=== PATIENT | female | born 1950 | race African-American/Black ===

== ENCOUNTER → 2016-04-19 | Outpatient (CLI) | payer MEDICARE, OTHER ==
[2014-04-27 15:01] VITALS: BP 123/58
[~2016-04-19] MED LIST: Blood Pressure Med PO; DILT180C2 PO; Hydrochlorothiazide PO; NAPR500T PO; POTA10TA10 PO
--- NOTE | 2016-04-19 15:49 | RAD ---
DATE: 04/19/2016 EXAM: DIGITAL SCREEN BILAT W/CAD HISTORY: Routine screening COMPARISON: 12/13/2014 This study was interpreted with the benefit of Computerized Aided Detection (CAD). FINDINGS: There are scattered fibroglandular densities in the breasts. No new or enlarging breast densities are seen. Benign type calcifications are present. No suspicious microcalcifications have developed. IMPRESSION: Stable mammograms without evidence of malignancy. BI-RADS CATEGORY: 2 BENIGN FINDING(S) RECOMMENDED FOLLOW-UP: 12M 12 MONTH FOLLOW-UP PQRS compliance statement: Patient information was entered into a reminder system with a target due date for the next mammogram. Mammography is a sensitive method for finding small breast cancers, but it does not detect them all and is not a substitute for careful clinical examination. A negative mammogram does not negate a clinically suspicious finding and should not result in delay in biopsying a clinically suspicious abnormality. "Our facility is accredited by the [employer] Mammography Program."
== END | disposition home or self-care (01) ==
LOC: MAMMO 12:50
PROVIDERS: ATTEND Family Medicine
DX: Z12.31 Encounter for screening mammogram for malignant neoplasm of breast (principal)
CPT/HCPCS: G0202; 77067

== ENCOUNTER → 2016-06-23 | Outpatient (CLI) | payer MEDICARE ==
[2014-04-27 15:01] VITALS: BP 123/58
[~2016-06-23] MED LIST changes: +CONTRAST GIVEN MC PRN; +IOHEXOL 300 MG/ML 100ML VIAL. IV ONE; -POTA10TA10 PO; +POTA10TA12 PO
--- NOTE | 2016-06-23 14:18 | KCIC ---
PROCEDURE CTA of the chest with contrast (pulmonary embolism protocol) 06/23/2016 HISTORY Pleuritic chest pain for 1 week with shortness of breath. TECHNIQUE After the intravenous administration 95 cc of Omnipaque 300, contiguous, 0.6 millimeter axial sections were obtained through the chest. 2 millimeter reconstructed axial and 3D MIP sagittal and coronal reconstructed images were obtained. One or more of the following individualized dose reduction techniques were utilized for this study: 1. Automated exposure control. 2. Adjustment of the mA and/or kV according to patient size. 3. Use of iterative reconstruction technique. FINDINGS Comparison study is dated 04/26/2014. No filling defect is seen within the major branches of either pulmonary artery. There is no CT evidence of pulmonary embolism. The thoracic aorta is tortuous but tapers normally. Mild to moderate atheromatous/atherosclerotic plaque formation is seen involving the thoracic aorta and its branches. The heart is mildly enlarged. Calcified hilar and mediastinal lymph nodes are seen which measure 5 millimeters to 2 centimeters in size. Prominent likely reactive lymph nodes are seen bilaterally. These measure 1 centimeters to 2 centimeters in size Minimal dependent subsegmental atelectasis is seen involving both lungs. Small calcified granulomas are seen scattered throughout both lungs. No area of consolidation is seen. No pneumothorax or pleural effusion is noted. Images through the abdomen demonstrate decreased attenuation of the liver parenchyma consistent with fatty infiltration. Degenerative changes are seen involving the thoracic spine. Very mild S-shaped curvature of the thoracolumbar spine is seen. IMPRESSION There is no CT evidence of pulmonary embolism. Electronically signed by: Bipin Willson MD (June 23, 2016 14:16:47)
== END | disposition home or self-care (01) ==
LOC: KCIC CT 09:37
PROVIDERS: ATTEND Family Medicine
DX: R07.81 Pleurodynia (principal)
CPT/HCPCS: 71275; 82565; Q9967

== ENCOUNTER → 2017-06-20 | Outpatient (CLI) | payer MEDICARE | END | disposition home or self-care (01) | LOC: MAMMO 12:19 | DX: Z12.31 Encounter for screening mammogram for malignant neoplasm of breast (principal) | CPT/HCPCS: 77063; 77067 ==

== ENCOUNTER 2017-12-12 16:18 | Emergency (ER) | payer MEDICARE ==
[~2017-12-12] VITALS: Ht 165.1 cm; Wt 88.0 kg
[~2017-12-12 16:18] MED LIST changes: -CONTRAST GIVEN MC PRN; -IOHEXOL 300 MG/ML 100ML VIAL. IV ONE; +NAPR-683 PO; -NAPR500T PO
[2017-12-12] MEDS ORDERED: CONTRAST GIVEN. MC PRN (17:45)
[2017-12-12] MEDS ORDERED: IOHEXOL 300 MG/ML 100ML VIAL. IV ONE (17:45)
[2017-12-12 18:25] LABS: BILIRUBIN,URINE NEGATIVE (NEG); CLARITY,URINE CLEAR; COLOR,URINE YELLOW; NITRITE,URINE NEGATIVE (NEG); PH,URINE 5.5; PROTEIN,URINE NEGATIVE (NEG-TRACE); UROBILINOGEN,URINE 0.2 mg/dL (0.2 mg/dL)
[2017-12-12 18:32] LABS: BASO % 1 % (0-3); EOS # 0.1 x10^3/uL (0.0-0.7); EOS % 2 % (0-3); HEMATOCRIT 36.4 % (36.0-47.0); HEMOGLOBIN 12.3 g/dL (12.0-15.5); LYMPH # 2.3 x10^3/uL (1.0-4.8); LYMPH % 52 % (24-48); MEAN CORPUSCULAR HEMOGLOBIN 32 pg (25-35); MEAN CORPUSCULAR HGB CONC 34 g/dL (31-37); MEAN CORPUSCULAR VOLUME 94 fL (79-100); MONO # 0.4 x10^3/uL (0.0-1.1); MONO % 9 % (0-9); NEUT # 1.7 x10^3uL (1.8-7.7); NEUT % 37 % (31-73); PLATELET COUNT 211 x10^3/uL (140-400); RED BLOOD COUNT 3.88 x10^6/uL (3.50-5.40); RED CELL DISTRIBUTION WIDTH 14.2 % (11.5-14.5); WHITE BLOOD COUNT 4.5 x10^3/uL (4.0-11.0)
[2017-12-12 18:42] LABS: BACTERIA,URINE FEW /HPF (0-FEW); RBC,URINE 0 /HPF (0-2); SQUAMOUS EPITHELIAL CELL,UR MANY /LPF
[2017-12-12 18:43] LABS: CREATININE 1.3 mg/dL (0.6-1.0); GFR 49.3; POTASSIUM 3.4 mmol/L (3.5-5.1)
[2017-12-12] MEDS ORDERED: ONDANSETRON PF 4 MG/2 ML VIAL. IV ONE (19:00)
[2017-12-12] MEDS ORDERED: fentaNYL PF VIAL 100 MCG/2 ML VIAL IV ONE (19:00)
[2017-12-12 19:01] LABS: ALBUMIN 3.5 g/dL (3.4-5.0); ALBUMIN/GLOBULIN RATIO 0.7 (1.0-1.7); TOTAL BILIRUBIN 0.2 mg/dL (0.2-1.0); TOTAL PROTEIN 8.6 g/dL (6.4-8.2)
--- NOTE | 2017-12-12 19:31 | RAD ---
PQRS Compliance statement: One or more of the following individualized dose reduction techniques were utilized for this examination: 1. Automated exposure control. 2. Adjustment of the mA and/or kV according to patient size. 3. Use of iterative reconstruction technique. Indication:right lower quadrant pain
Omni 300 60ml, reduced dose
prior sent TECHNIQUE: CT abdomen and pelvis with IV contrast with multiplanar reformats. COMPARISON: None FINDINGS: Heart is normal in size. No pericardial or pleural effusion. Mild bibasilar dependent atelectasis. Scattered calcified granulomas in the liver and spleen. Too small to characterize low attenuating lesion in segment 8 of the liver measuring 8 mm (series 2 image 17). No radiopaque gallstones. No pericholecystic fluid or gallbladder wall thickening. Pancreas within normal limits without peripancreatic inflammatory changes or focal pancreatic lesion. Adrenal glands show no focal mass. 3 mm nonobstructing stone in the right kidney. No hydronephrosis or suspicious renal lesion. No enlarged retroperitoneal or pelvic adenopathy. No free pelvic fluid or ascites. Appendix is not visualized. No right lower quadrant inflammatory changes. Circumferential rectal wall thickening is seen measuring 1.2 cm. Status post hysterectomy. No pneumoperitoneum. Urinary bladder is within normal limits. Status post hysterectomy. No suspicious bony lesion. Multilevel degenerative disc disease is seen in the spine. IMPRESSION: 1. Appendix is not visualized. However no right lower quadrant inflammatory changes. No bowel obstruction. 2. Circumferential wall thickening of the rectum may be secondary to suboptimal distention. However rectal malignancy is not ruled out. Clinically correlate with colonoscopy. 3. Too small to characterize segment 8 lesion, nonspecific and may represent a small hemangioma. Nonemergent MRI of the abdomen with IV contrast is recommended for definite confirmation. 3. Nonobstructing right renal stone. Electronically signed by: Artemio Lobato DO (12/12/2017 7:28 PM) [facility]
[2017-12-12 20:38] VITALS: BP 152/76
--- NOTE | 2017-12-12 21:22 | PHYS DOC ---
Past Medical History Past Medical History: No Pertinent History Past Surgical History: Other Alcohol Use: None Drug Use: None Adult General Chief Complaint Chief Complaint: ABDOMINAL PAIN HPI HPI Patient is a 67 year old F P/W ABDO PAIN RLQ. STARTED ON TUESDAY SHE DOES NOT RECALL A PARTICULAR INJURY NO URINARY SYMPTOMS NO FEVER PRIMARY PAUL ASKED ER EVAL FOR R/O APPENDICITIS. PT STATES THE PAIN IS SHARP WORSE WITH MOVING LEG, SHE POINTS TO HER INGUINAL LIGAMENT AREA. NONRADIATING. WORSENING WITH TIME. Review of Systems Review of Systems Constitutional: Denies fever or chills [] Eyes: Denies change in visual acuity, redness, or eye pain [] HENT: Denies nasal congestion or sore throat [] GI: Denies nausea, vomiting, bloody stools or diarrhea [] : Denies dysuria or hematuria [] Musculoskeletal: Denies back pain or joint pain [] Neurologic: Denies headache, focal weakness or sensory changes [] Endocrine: Denies polyuria or polydipsia [] All other systems were reviewed and found to be within normal limits, except as documented in this note. Current Medications Current Medications Current Medications Medications (Trade) Dose Ordered Sig/Laisha Start Time Stop Time Status Last Admin Dose Admin Fentanyl Citrate (Fentanyl 2ml Vial) 50 mcg 1X ONCE 12/12/17 19:00 12/12/17 19:01 DC 12/12/17 18:42 50 MCG Info (CONTRAST GIVEN -- Rx MONITORING) 1 each PRN DAILY PRN 12/12/17 17:45 12/12/17 20:51 DC Iohexol (Omnipaque 300 Mg/ml) 75 ml 1X ONCE 12/12/17 17:45 12/12/17 17:46 DC 12/12/17 17:45 60 ML Ondansetron HCl (Zofran) 4 mg 1X ONCE 12/12/17 19:00 12/12/17 19:01 DC 12/12/17 18:39 4 MG Allergies Allergies Allergies Coded Allergies Type Severity Reaction Last Updated Verified No Known Drug Allergies 04/25/14 No Physical Exam Physical Exam Constitutional: Well developed, well nourished, no acute distress, non-toxic appearance. [] HENT: Normocephalic, atraumatic, bilateral external ears normal, oropharynx moist, no oral exudates, nose normal. [] Eyes: PERRLA, EOMI, conjunctiva normal, no discharge. [] Neck: Normal range of motion, no tenderness, supple, no stridor. [] RES: NORMAL EFFORT NO INCREASED WORK OF BRAETHING Abdomen: Bowel sounds normal, soft, THERE IS tenderness JUST ABOVE THE INGUINAL LIGAMENT THERE IS NO LYMPHADENOPATHY OR HERNIA PAIN IS REPRODUCED WHEN SHE MOVES HER LEG. NO TTP AT [place] POINT. no masses , no pulsatile masses. [] Skin: Warm, dry, no erythema, no rash. [] Extremities: No tenderness, no cyanosis, no clubbing, ROM intact, no edema. [] Neurologic: Alert and oriented X 3, normal motor function, normal sensory function, no focal deficits noted. [] Psychologic: Affect normal, judgement normal, mood normal. [] Current Patient Data Vital Signs Vital Signs Date Time Temp Pulse Resp B/P (MAP) Pulse Ox O2 Delivery O2 Flow Rate FiO2 12/12/17 20:38 98.2 66 16 152/76 (101) 98 Room Air 98.2 Lab Values Laboratory Tests Test 12/12/17 18:10 12/12/17 18:23 Urine Collection Type Unknown Urine Color Yellow Urine Clarity Clear Urine pH 5.5 Urine Specific [place] 1.015 Urine Protein Negative mg/dL (NEG-TRACE) Urine Glucose (UA) Negative mg/dL (NEG) Urine Ketones (Stick) Negative mg/dL (NEG) Urine Blood Negative (NEG) Urine Nitrite Negative (NEG) Urine Bilirubin Negative (NEG) Urine Urobilinogen Dipstick 0.2 mg/dL (0.2 mg/dL) Urine Leukocyte Esterase Small (NEG) Urine RBC 0 /HPF (0-2) Urine WBC 1-4 /HPF (0-4) Urine Squamous Epithelial Cells Many /LPF Urine Bacteria Few /HPF (0-FEW) Urine Mucus Mod /LPF White Blood Count 4.5 x10^3/uL (4.0-11.0) Red Blood Count 3.88 x10^6/uL (3.50-5.40) Hemoglobin 12.3 g/dL (12.0-15.5) Hematocrit 36.4 % (36.0-47.0) Mean Corpuscular Volume 94 fL (79-100) Mean Corpuscular Hemoglobin 32 pg (25-35) Mean Corpuscular Hemoglobin Concent 34 g/dL (31-37) Red Cell Distribution Width 14.2 % (11.5-14.5) Platelet Count 211 x10^3/uL (140-400) Neutrophils (%) (Auto) 37 % (31-73) Lymphocytes (%) (Auto) 52 % (24-48) H Monocytes (%) (Auto) 9 % (0-9) Eosinophils (%) (Auto) 2 % (0-3) Basophils (%) (Auto) 1 % (0-3) Neutrophils # (Auto) 1.7 x10^3uL (1.8-7.7) L Lymphocytes # (Auto) 2.3 x10^3/uL (1.0-4.8) Monocytes # (Auto) 0.4 x10^3/uL (0.0-1.1) Eosinophils # (Auto) 0.1 x10^3/uL (0.0-0.7) Basophils # (Auto) 0.0 x10^3/uL (0.0-0.2) Sodium Level 142 mmol/L (136-145) Potassium Level 3.4 mmol/L (3.5-5.1) L Chloride Level 105 mmol/L (98-107) Carbon Dioxide Level 25 mmol/L (21-32) Anion Gap 12 (6-14) Blood Urea Nitrogen 15 mg/dL (7-20) Creatinine 1.3 mg/dL (0.6-1.0) H Estimated GFR (Cockcroft-Gault) 49.3 BUN/Creatinine Ratio 12 (6-20) Glucose Level 76 mg/dL (70-99) Calcium Level 9.0 mg/dL (8.5-10.1) Total Bilirubin 0.2 mg/dL (0.2-1.0) Aspartate Amino Transferase (AST) 19 U/L (15-37) Alanine Aminotransferase (ALT) 25 U/L (14-59) Alkaline Phosphatase 107 U/L (46-116) Total Protein 8.6 g/dL (6.4-8.2) H Albumin 3.5 g/dL (3.4-5.0) Albumin/Globulin Ratio 0.7 (1.0-1.7) L Laboratory Tests 12/12/17 18:23 Laboratory Tests 12/12/17 18:23 EKG EKG [] Radiology/Procedures Radiology/Procedures [] Impressions: ine. IMPRESSION: 1. Appendix is not visualized. However no right lower quadrant inflammatory changes. No bowel obstruction. 2. Circumferential wall thickening of the rectum may be secondary to suboptimal distention. However rectal malignancy is not ruled out. Clinically correlate with colonoscopy. 3. Too small to characterize segment 8 lesion, nonspecific and may represent a small hemangioma. Nonemergent MRI of the abdomen with IV contrast is recommended for definite confirmation. 3. Nonobstructing right renal stone. Electronically signed by: Artemio Lobato DO (12/12/2017 7:28 PM) [facility] Course & Med Decision Making Course & Med Decision Making Pertinent Labs and Imaging studies reviewed. (See chart for details) NOTED CT READ OF THE RECTUM, PT STATES HAD CLEAN COLO TWO MONTHS AGO. PT HAS SOMEWHAT REPRODUCIBLE MSK PAIN AT OR NEAR THE INGUINAL LIGAMENT. CT SCAN DID NOT SHOW ANY SIGNS OF APPENDICITIS AFTER TWO DAYS OF SYPMTOMS. INSTRCUTED TO COME BACK FOR FEVER, WORSENING OR DIFFUSE PAIN OR ANY OTHER SYPMTOMS OR CONCERNS. OTHERWISE F/U WITH DR MILLER REGARDING THE BLOOD PRESSURE WELL SHE IS IN AGREEMENT Dragon Disclaimer Dragon Disclaimer This electronic medical record was generated, in whole or in part, using a voice recognition dictation system. Departure Departure Impression: Primary Impression: Elevated blood pressure reading Additional Impression: Abdominal pain Disposition: 01 HOME, SELF-CARE Condition: STABLE Patient Instructions: Abdominal Pain (Nonspecific) Additional Instructions: get your blood pressure checked in two weeks. Problem Qualifiers NILAM PORTILLO MD Dec 12, 2017 21:21
== END 2017-12-12 20:42 | disposition home or self-care (01) ==
LOC: ER 16:18
DX: R10.31 Right lower quadrant pain (principal); R03.0 Elevated blood-pressure reading, without diagnosis of hypertension
CPT/HCPCS: 36415; 74177; 80053; 81001; 85025; 87086; 96374; 96375; 99285; J2405; J3010; Q9967

== ENCOUNTER → 2018-06-22 | Outpatient (CLI) | payer MEDICARE ==
--- NOTE | 2018-06-22 09:39 | RAD ---
DATE: 06/22/2018 EXAM: MAMMO DANDRE SCREENING BILATERAL HISTORY: Routine screening COMPARISON: 06/20/2017 This study was interpreted with the benefit of Computerized Aided Detection (CAD). Breast Density: SCATTERED The breast parenchyma shows scattered fibroglandular densities. Breast parenchyma level B. FINDINGS: 2-D and 3-D tomosynthesis imaging was performed in CC and MLO projections. No new or enlarging breast densities are seen. Benign type calcifications are present. No suspicious microcalcifications have developed. IMPRESSION: There is no mammographic evidence of malignancy in either breast. BI-RADS CATEGORY: 2 BENIGN FINDING(S) RECOMMENDED FOLLOW-UP: 12M 12 MONTH FOLLOW-UP PQRS compliance statement: Patient information was entered into a reminder system with a target due date for the next mammogram. Mammography is a sensitive method for finding small breast cancers, but it does not detect them all and is not a substitute for careful clinical examination. A negative mammogram does not negate a clinically suspicious finding and should not result in delay in biopsying a clinically suspicious abnormality. "Our facility is accredited by the [employer] Mammography Program."
== END | disposition home or self-care (01) ==
LOC: MAMMO 08:20
PROVIDERS: ATTEND Family Medicine
DX: Z12.31 Encounter for screening mammogram for malignant neoplasm of breast (principal); N64.89 Other specified disorders of breast
CPT/HCPCS: 77063; 77067

== ENCOUNTER → 2018-10-11 | Outpatient (CLI) | payer MEDICARE ==
--- NOTE | 2018-10-11 17:13 | RAD ---
Examination: Left Lower Extremity Venous Doppler Ultrasound History: Left ankle edema Comparison: None Procedure: Weston scale, color flow 2D and spectal waveform analysis images are obtained with and without compression in the area of the common femoral vein, superficial femoral vein - femoral vein junction, main femoral vein (superficial femoral vein) and popliteal vein. Veins of the proximal calf are also imaged. Findings: There is normal duplex flow, color flow and compressibility of all visualized vein segments. No evidence of deep venous thrombus is present. Mild soft tissue edema identified in the left ankle and foot region. Impression: No evidence of DVT in the left lower extremity venous system. Electronically signed by: Jaquan Villarreal MD (10/11/2018 5:10 PM) [facility]
== END | disposition home or self-care (01) ==
LOC: US 13:51
PROVIDERS: ATTEND Family Medicine
DX: R60.0 Localized edema (principal)
CPT/HCPCS: 93971

== ENCOUNTER → 2018-12-12 | Outpatient (CLI) | payer MEDICARE ==
--- NOTE | 2018-12-12 14:25 | KCIC ---
EXAM: LEFT FOOT 3 VIEWS. HISTORY: Left foot pain, remote injury COMPARISON: None. FINDINGS: Three views of the left foot are obtained. No fractures are identified. There is mild pes planus. Small osteophytes indicate mild metatarsophalangeal osteoarthritis. There is mild hallux valgus. There is a moderate plantar calcaneal spur. Atherosclerotic calcifications are noted. Soft tissue swelling is noted along the dorsum of the foot. IMPRESSION: 1. 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 2. Mild pes planus. 3. Soft tissue swelling dorsally. Electronically signed by: Mariola Perez MD (12/12/2018 2:22 PM) [facility]
== END | disposition home or self-care (01) ==
LOC: KCIC 09:27
PROVIDERS: ATTEND Family Medicine
DX: M25.775 Osteophyte, left foot (principal); M21.42 Flat foot [pes planus] (acquired), left foot; M19.072 Primary osteoarthritis, left ankle and foot; M77.32 Calcaneal spur, left foot; I70.0 Atherosclerosis of aorta; M20.12 Hallux valgus (acquired), left foot
CPT/HCPCS: 73630

== ENCOUNTER → 2020-04-14 | Outpatient (CLI) | payer MEDICARE ==
[~2020-04-14] MED LIST changes: -POTA10TA12 PO; +POTASSIUM CHLO10 ME1 PO
--- NOTE | 2020-04-15 15:47 | RAD ---
EXAM: Bilateral digital screening mammogram with tomosynthesis. HISTORY: 70-year-old female presents for screening mammography. TECHNIQUE: Full-field digital craniocaudal and mediolateral oblique 2D and 3D tomosynthesis images of both breasts are obtained for evaluation. Computer aided detection was not applied. COMPARISON: 06/22/2018 BREAST PARENCHYMAL DENSITY: Level B - Scattered fibroglandular densities. FINDINGS: There is no new suspicious mass, microcalcification or region of architectural distortion. IMPRESSION: BI-RADS Category 2: Benign finding(s). RECOMMENDATION: Annual mammography is recommended. If your mammogram demonstrates that you have dense breast tissue, which could hide abnormalities, and if you have other risk factors for breast cancer that have been identified, you might benefit from s upplemental screening tests that may be suggested by your ordering physician. Dense breast tissue, i n and of itself, is a relatively common condition. This information is not provided to cause undue c oncern, but rather to raise your awareness and to promote discussion with your physician regarding th e presence of other risk factors, in addition to dense breast tissue. A report of your mammography re sults will be sent to you and your physician. You should contact your physician if you have any ques tions or concerns regarding this report. Mammography is a sensitive method for finding small breast cancers, but it does not detect them all a nd is not a substitute for careful clinical examination. A negative mammogram does not negate a clin ically suspicious finding and should not result in delay in biopsying a clinically suspicious abnorma lity. PQRS compliance statement - Patient information was entered into a reminder system with a target due date for the next mammogram. "Our facility is accredited by the [employer] Mammography Program." Electronically signed by: Sita Gupta MD (04/15/2020 3:45 PM) [id number]
== END ==
LOC: MAMMO 13:09
PROVIDERS: ATTEND Family Medicine
DX: Z12.31 Encounter for screening mammogram for malignant neoplasm of breast (principal)
CPT/HCPCS: 77063; 77067

== ENCOUNTER → 2020-08-05 | Outpatient (CLI) | payer MEDICARE ==
--- NOTE | 2020-08-05 08:35 | KCIC ---
EXAM: RENAL DOPPLER ULTRASOUND. HISTORY: Hypertension. COMPARISON: None. FINDINGS: Grayscale and Doppler analysis of the renal vasculature was performed bilaterally. Grayscal e analysis of the kidneys and bladder were also performed. The peak systolic velocities within the proximal, mid and distal right renal artery are 100 cm/s, 108 cm/s and 80 cm/s, respectively. Resistive indices measure 0.72-0.77. The right renal vein is patent. The corresponding measurements on the left are 77 cm/s, 63 cm/s and 69 cm/s, respectively. Resistive indices measure 0.75-0.77. The left renal vein is patent. The systolic velocity within the abdominal aorta at the level of the renal arteries is 90 cm/s. The i nferior vena cava is grossly patent and normal in caliber. The right kidney measures 10.6 cm. Cortical echogenicity is mildly increased. Cortical thickness is p reserved. There is no hydronephrosis. The left kidney measures 9.6 cm. Cortical echogenicity is mildly increased. Cortical thickness is pre served. There is no hydronephrosis. IMPRESSION: 1. No evidence of hemodynamically significant stenosis. 2. Mildly increased cortical echogenicity is consistent with intrinsic renal disease. Electronically signed by: Mariola Perez MD (08/05/2020 8:33 AM) [id number]
== END ==
LOC: KCIC US 07:54
PROVIDERS: ATTEND Family Medicine
DX: I10 Essential (primary) hypertension (principal)
CPT/HCPCS: 93975

== ENCOUNTER → 2020-08-25 | Outpatient (CLI) | payer MEDICARE ==
--- NOTE | 2020-08-25 17:23 | CARD ---
MR#: [id number] Date of Study: 08/25/2020 Ordering Physician: TEQUILA NGO, Referring Physician: TEQUILA NGO, Tech: Odalis Kinjal, [facility] APPROVED REPORT EXAM: Two-dimensional and M-mode echocardiogram with Doppler and color Doppler. Other Information Quality : AverageHR: 59bpm INDICATION Hypertension/HCVD 2D DIMENSIONS RVDd4.0 (2.9-3.5cm)Left Atrium(2D)4.0 (1.6-4.0cm) IVSd1.2 (0.7-1.1cm)Aortic Root(2D)3.1 (2.0-3.7cm) LVDd5.0 (3.9-5.9cm)LVOT Diameter2.1 (1.8-2.4cm) PWd1.0 (0.7-1.1cm)LVDs2.6 (2.5-4.0cm) FS (%) 47.1 %SV90.5 ml Aortic Valve AoV Peak Alvaro.128.6cm/sAoV VTI26.6cm AO Peak GR.6.6mmHgLVOT Peak Alvaro.133.2cm/s LVOT VTI 21.12cmAO Mean GR.3mmHg MARY (VMAX)2.51da6GIC (VTI)2.79cm2 Mitral Valve MV E Alescpht06.8cm/sMV DECEL [id number] MV A Ygqmijwq34.8cm/sMV WTN12xu E/A Ratio0.6MVA (PHT)2.84cm2 TDI E/Lateral E'6.2E/Medial E'9.7 Pulmonary Valve PV Peak Xnodkhyz62.9cm/sPV Peak Grad.4mmHg Tricuspid Valve TR P. Iwuluitu250ar/sRAP [id number] TR Peak Gr.28crUgKCTD71vzSx Pulmonary Vein S1 Pnrkzwth10.6cm/sD2 Heiujbaj04.0cm/s PVa [id number] LEFT VENTRICLE The left ventricle is normal size. There is mild concentric left ventricular hypertrophy. The left ve ntricular systolic function is normal and the ejection fraction is within normal range. The Ejection Fraction is 50-55%. There is normal LV segmental wall motion. Transmitral Doppler flow pattern is Gra de I-abnormal relaxation pattern. RIGHT VENTRICLE The right ventricle is normal size. There is normal right ventricular wall thickness. The right ventr icular systolic function is normal. ATRIA The left atrium size is normal. The right atrium size is normal. The interatrial septum is intact wit h no evidence for an atrial septal defect or patent foramen ovale as noted on 2-D or Doppler imaging. AORTIC VALVE The aortic valve is calcified but opens well. Doppler and Color Flow revealed trace aortic regurgitat ion. There is no significant aortic valvular stenosis. Calculated aortic valve maximum pressure gradi ent of 5 mmHg and mean pressure gradient of 2.24 mmHg. MITRAL VALVE The mitral valve is normal in structure and function. There is no evidence of mitral valve prolapse. There is no mitral valve stenosis. Doppler and Color Flow revealed no mitral valve regurgitation note d. TRICUSPID VALVE The tricuspid valve is normal in structure and function. Doppler and Color Flow revealed trace tricus pid regurgitation with an estimated PAP of 36 mmHg. There is no tricuspid valve stenosis. PULMONIC VALVE The pulmonic valve is not well visualized. Doppler and Color Flow revealed trace pulmonic valvular re gurgitation. GREAT VESSELS The aortic root is normal in size. The ascending aorta is normal in size. The IVC is normal in size a nd collapses >50% with inspiration. PERICARDIAL EFFUSION There is no evidence of significant pericardial effusion. Critical Notification Critical Value: No <Conclusion> The left ventricle is normal size. The left ventricular systolic function is normal and the ejection fraction is within normal range. The Ejection Fraction is 50-55%. There is mild concentric left ventricular hypertrophy. Doppler and Color Flow revealed trace aortic regurgitation. There is no significant aortic valvular stenosis. Calculated aortic valve maximum pressure gradient of 5 mmHg and mean pressure gradient of 2.24 mmHg. Doppler and Color Flow revealed no mitral valve regurgitation noted. Doppler and Color Flow revealed trace tricuspid regurgitation with an estimated PAP of 36 mmHg. Signed by : Julian Hardwick MD Electronically Approved : 08/25/2020 17:22:37
== END ==
LOC: ECHO 12:26
PROVIDERS: ATTEND Internal Medicine Cardiovascular Disease
DX: I35.8 Other nonrheumatic aortic valve disorders (principal); I11.9 Hypertensive heart disease without heart failure
CPT/HCPCS: 93306

== ENCOUNTER → 2020-11-07 | Outpatient (CLI) | payer MEDICARE ==
--- NOTE | 2020-11-07 15:32 | KCIC ---
MRI BRAIN WO Date: 11/07/2020 2:40 PM Indication: Migraine. Pt hypertensive, BP has been elevated. Pt. c/o headache post covid vaccine. Comparison: None. Technique: Multiplanar multisequence MRI of the brain was performed without intravenous contrast usin g the standard protocol. Findings: No acute infarct. No acute or chronic hemorrhage. The ventricles are normal in size and configuration without hydrocephalus. Mild scattered FLAIR hyperintensities in the subcortical and periventricular deep white matter, a nonspecific finding, most commonly seen with chronic small vessel ischemic disea se. Right cerebellar chronic lacunar infarcts. The scalp and calvarium are normal. Empty sella. No Chiari malformation. Mild incompletely characteri zed degenerative spondylosis of the visualized upper cervical spine. The visualized orbits and globes are normal. The visualized paranasal sinuses are clear. The mastoid air cells are clear. Normal flow voids within the vertebral, basilar, and internal carotid arteries indicating patency. IMPRESSION: 1. No acute infarct, acute hemorrhage, mass, or hydrocephalus. 2. Right cerebellar chronic lacunar infarct. 3. Mild scattered FLAIR hyperintensities in the subcortical and periventricular deep white matter, a nonspecific finding, most commonly seen with chronic small vessel ischemic disease. Electronically signed by: Silvestre Mendieta MD (11/07/2020 3:29 PM) [id number]
== END ==
LOC: KCIC MRI 14:21
PROVIDERS: ATTEND Family Medicine
DX: I63.81 Other cerebral infarction due to occlusion or stenosis of small artery (principal); G43.909 Migraine, unspecified, not intractable, without status migrainosus
CPT/HCPCS: 70551

== ENCOUNTER → 2021-04-20 | Outpatient (CLI) | payer MEDICARE ==
--- NOTE | 2021-04-20 16:06 | RAD ---
PROCEDURE: MG BILAT SCREEN+DANDRE HISTORY: The patient is 71 years old and is seen for Reason: SCREENING / Spl. Instructions: / Histor y: . COMPARISON: April 14, 2020 TECHNIQUE: CC and MLO views of both breasts were obtained. Images were processed by the [employer] computer-aided detection system. DENSITY: There are scattered fibroglandular densities. FINDINGS: No developing mass, suspicious calcifications or architectural distortion. Benign-appear ing calcific effusion bilaterally, unchanged. IMPRESSION: Benign findings. No evidence of malignancy. Recommend annual screening mammograms per [employer] guidelines. She will be due in one year. BI-RADS category 2 Benign Patient entered into a reminder system for annual screening mammogram. Electronically signed by: Jaxson Pérez DO (04/20/2021 4:03 PM) [id number]
== END ==
LOC: MAMMO 12:52
PROVIDERS: ATTEND Family Medicine
DX: Z12.31 Encounter for screening mammogram for malignant neoplasm of breast (principal)
CPT/HCPCS: 77063; 77067